=== PATIENT | female | born 1980 | race Caucasian/White ===

== ENCOUNTER 2019-12-18 05:45 | Inpatient (IN) ==
[2019-12-18] MEDS ORDERED: Ringers Solution, Lactated 1,000 ML IVC ONE (06:10)
[2019-12-18] MEDS ORDERED: Famotidine 20 MG/2 ML VIAL IVP ONE (06:10)
[2019-12-18] MEDS ORDERED: CeFAZolin 2,000 MG/50 ML BAG IVPB ONE (06:10)
[2019-12-18] MEDS ORDERED: Metoclopramide 10 MG/2 ML VIAL IVP ONE (06:10)
[2019-12-18 07:11] LABS: Basophils % 0.5 %; Eosinophils % 0.5 %; Hemoglobin 12.7 g/dL (11.5-15.4); Immature Granulocytes % 1.4 % (0-4); Lymphocytes # 1.4 K/mcL (0.6-4.6); Lymphocytes % 16.2 %; Mean Corpuscular HGB Conc 33.4 g/dL (31.6-35.5); Mean Corpuscular Hemoglobin 32.4 pg (28.0-33.3); Mean Corpuscular Volume 96.9 fL (83.0-100.0); Mean Platelet Volume 9.9 fL (9.4-12.4); Monocytes # 0.7 K/mcL (0.0-1.3); Monocytes % 8.1 %; Neutrophils # 6.2 K/mcL (1.6-8.9); Platelet Count 132 K/mcL (140-400); Red Blood Count 3.92 M/mcL (3.82-4.97); Red Cell Distribution Width 14.1 % (11.5-14.5); Segmented Neutrophils % 73.3 %; White Blood Count 8.4 K/mcL (4.3-11.1)
[2019-12-18] MEDS ORDERED: *HR* Oxytocin 10 UNIT/ML VIAL IM ONE (07:14)
[2019-12-18] MEDS ORDERED: *HR* Phenylephrine 10 MG/ML VIAL ONE (07:14)
[2019-12-18] MEDS ORDERED: *HR* FentaNYL (PF) 100 MCG/2 ML VIAL ONE (07:14)
[2019-12-18] MEDS ORDERED: EPHEDrine 50 MG/ML VIAL ONE (07:14)
[2019-12-18] MEDS ORDERED: Ondansetron 4 MG/2 ML VIAL ONE (07:14)
[2019-12-18] MEDS ORDERED: *HR* Morphine Sulfate/PF 10 MG/10 ML AMPUL ONE (07:14)
[2019-12-18] MEDS ORDERED: Acetaminophen IV 1,000 MG/100 ML INFUS..BTL ONE (07:15)
[2019-12-18] MEDS ORDERED: Ringers Solution, Lactated 1,000 ML ONE (07:19)
[2019-12-18] MEDS ORDERED: Naloxone 0.4 MG/ML INJ IVP PRN (07:38)
[2019-12-18] MEDS ORDERED: *HR* Promethazine 25 MG/ML VIAL IVP PRN (07:38)
[2019-12-18] MEDS ORDERED: *HR* Labetalol 20 MG/4 ML SYRINGE IVP PRN (07:38)
[2019-12-18] MEDS ORDERED: Ondansetron 4 MG/2 ML VIAL IVP ONE (07:38)
[2019-12-18] MEDS ORDERED: Ketamine *HR* 500 MG/10 ML MDV ONE (08:17)
[2019-12-18 08:25] LABS: Amphetamine Screen,Urine Negative ng/mL (Cutoff=1000); Barbiturate Screen,Urine Negative ng/mL (Cutoff=200); Benzodiazepines Screen,Urine Negative ng/mL (Cutoff=200); Cannabinoid Screen,Urine Negative ng/mL (Cutoff = 50); Cocaine Screen,Urine Negative ng/mL (Cutoff= 300); Opiate Screen,Urine Negative ng/mL (Cutoff=300); Phencyclidine Screen,Urine Negative ng/mL (Cutoff=25)
[2019-12-18] MEDS ORDERED: Oxytocin 20 units/ LR 1000 mL 20 UNIT/1,000 ML BAG IVC ONE (10:18)
[2019-12-18] MEDS ORDERED: Metoclopramide 10 MG/2 ML VIAL IVP PRN (12:09)
[2019-12-18] MEDS ORDERED: Rho Immune Globulin 1,500 UNIT SYRINGE IM ONE (12:09)
[2019-12-18] MEDS ORDERED: Ondansetron 4 MG/2 ML VIAL IVP PRN (12:09)
[2019-12-18] MEDS ORDERED: Oxytocin 20 units/ LR 1000 mL 20 UNIT/1,000 ML BAG IVC SCH (12:09)
[2019-12-18] MEDS ORDERED: Ibuprofen 600 MG TABLET PO PRN (12:09)
[2019-12-18] MEDS ORDERED: Sennosides 8.6 MG TABLET PO PRN (12:09)
[2019-12-18] MEDS ORDERED: Acetaminophen IV 1,000 MG/100 ML INFUS..BTL IVPB SCH (12:09)
[2019-12-18] MEDS: Prenatal Vit/FA 1 EACH TABLET PO SCH (13:55)
[2019-12-18] MEDS: metroNIDAZOLE 500 MG TABLET PO SCH ×2 (13:55→15:42)
[2019-12-18] MEDS: Ketorolac 15 MG/ML VIAL IVP SCH ×2 (17:54→23:39)
[2019-12-18] MEDS ORDERED: MetroNIDAZOLE 500 MG/100 ML 500 MG/100 ML BAG IVPB SCH (18:00)
[2019-12-18] MEDS: Acetaminophen IV 1,000 MG/100 ML INFUS..BTL IVPB SCH (23:45)
[2019-12-19] MEDS: Simethicone 80 MG TAB.CHEW PO PRN ×2 (00:18→20:26)
[2019-12-19] MEDS: MetroNIDAZOLE 500 MG/100 ML 500 MG/100 ML BAG IVPB SCH ×3 (00:20→15:14)
[2019-12-19] MEDS: Acetaminophen IV 1,000 MG/100 ML INFUS..BTL IVPB SCH (05:23)
[2019-12-19] MEDS: Ketorolac 15 MG/ML VIAL IVP SCH ×2 (05:24→13:44)
[2019-12-19 07:50] LABS: Basophils % 0.2 %; Eosinophils % 0.4 %; Hematocrit 28.3 % (35.3-44.9); Immature Granulocytes % 0.7 % (0-4); Lymphocytes # 0.8 K/mcL (0.6-4.6); Lymphocytes % 8.4 %; Mean Corpuscular HGB Conc 33.6 g/dL (31.6-35.5); Mean Corpuscular Hemoglobin 32.1 pg (28.0-33.3); Mean Corpuscular Volume 95.6 fL (83.0-100.0); Mean Platelet Volume 9.6 fL (9.4-12.4); Monocytes # 0.5 K/mcL (0.0-1.3); Monocytes % 5.8 %; Neutrophils # 7.5 K/mcL (1.6-8.9); Platelet Count 146 K/mcL (140-400); Red Blood Count 2.96 M/mcL (3.82-4.97); Red Cell Distribution Width 14.1 % (11.5-14.5); Segmented Neutrophils % 84.5 %; White Blood Count 8.9 K/mcL (4.3-11.1)
[2019-12-19 07:56] LABS: Hemoglobin 9.5 g/dL (11.5-15.4)
[2019-12-19] MEDS: Prenatal Vit/FA 1 EACH TABLET PO SCH (08:36)
[2019-12-19] MEDS: metroNIDAZOLE 500 MG TABLET PO SCH (20:27)
[2019-12-19] MEDS: Ibuprofen 600 MG TABLET PO PRN (20:28)
[2019-12-20] MEDS: Ibuprofen 600 MG TABLET PO PRN ×2 (02:16→20:46)
[2019-12-20] MEDS ORDERED: *HR* OxyCODONE/APAP 5/325 TABLET PO PRN (02:39)
[2019-12-20] MEDS: metroNIDAZOLE 500 MG TABLET PO SCH ×2 (08:22→20:46)
[2019-12-20] MEDS: Prenatal Vit/FA 1 EACH TABLET PO SCH (08:23)
[2019-12-20] MEDS ORDERED: *HR* OxyCODONE/APAP 5/325 TABLET PO ONE (14:35)
[2019-12-21] MEDS: Acetaminophen 325 MG TABLET PO PRN ×2 (00:02→06:47)
[2019-12-21] MEDS: Ibuprofen 600 MG TABLET PO PRN ×2 (02:52→09:46)
[2019-12-21 07:47] VITALS: BP 117/81
[2019-12-21] MEDS: metroNIDAZOLE 500 MG TABLET PO SCH (09:45)
[2019-12-21] MEDS: Prenatal Vit/FA 1 EACH TABLET PO SCH (09:45)
== END 2019-12-21 13:49 | disposition home or self-care (01) | DRG 787 ==
LOC: 1NENULAB 06:09 → 1NENUOBS 12:07
PROVIDERS: ADMIT Obstetrics & Gynecology; ATTEND Obstetrics & Gynecology